=== PATIENT | female | born 1995 | race Caucasian/White ===

== ENCOUNTER 2017-12-17 15:34 | Outpatient (CLI) | payer OTHER ==
[~2017-12-17] VITALS: Ht 157.5 cm; Wt 72.7 kg
[2017-12-17] VITALS (16 sets, daily range): BP systolic 117–151; BP diastolic 65–95
[2017-12-17] MEDS ORDERED: PRENATAL TABLE1 EAC3 PO (16:04)
[2017-12-17 16:42] LABS: SOURCE SWAB
[2017-12-17 16:58] LABS: BASOPHIL (%) 0.2 % (0-1); EOSINOPHIL (%) 0.6 % (0-5); EOSINOPHIL COUNT 0.1 K/uL (0-0.3); HEMOGLOBIN 9.9 G/DL (11.9-15.5); IMMATURE GRANULOCYTE (%) 0.5 % (0.0-0.7); LYMPHOCYTE (%) 21.1 % (15-42); LYMPHOCYTE COUNT 2.2 K/uL (1.0-2.8); MCH 26.7 PG (29.0-34.0); MCHC 31.9 G/DL (30.0-36.0); MCV 83.6 FL (83-99); MONOCYTE (%) 7.2 % (3-12); MONOCYTE COUNT 0.8 K/uL (0-0.8); NEUTROPHIL (%) 70.4 % (45-76); NEUTROPHIL COUNT 7.4 K/uL (1.8-6.4); PLATELET COUNT 190 K/uL (156-360); RBC DIS.WIDTH-CV 13.4 % (11.8-14.6); RBC DIS.WIDTH-SD 40.3 % (39-53); RED BLOOD COUNT 3.71 M/uL (3.80-5.20); WHITE BLOOD COUNT 10.5 K/uL (4.1-10.2)
[2017-12-17 17:00] LABS: APPEARANCE SL.HAZY ((CLEAR)); BILIRUBIN NEGATIVE; BLOOD NEGATIVE; COLOR YELLOW ((YELLOW)); GLUCOSE (STRIP) NEGATIVE; KETONES 5; LEUKOCYTES MODERATE; NITRITE NEGATIVE; PROTEIN (STRIP) NEGATIVE; SPECIFIC GRAVITY 1.008 (1.000-1.030); UROBILINOGEN 0.2 MG/DL (0.2-1.0)
[2017-12-17 17:20] LABS: ALBUMIN 3.2 G/DL (3.2-4.8); ALKALINE PHOSPHATASE 230 IU/L (3-129); ALT (GPT) 12 IU/L (3-49); AST (GOT) 16 IU/L (2-34); CHLORIDE 106 MEQ/L (99-109); CREATININE 0.7 MG/DL (0.6-1.3); GFR ESTIMATE (CALCULATED) > 59 mL/min/; GLUCOSE 94 mg/dL (70-99); SODIUM 135 MEQ/L (136-147); TOTAL BILIRUBIN 0.4 MG/DL (0.0-1.0); TOTAL PROTEIN 6.2 G/DL (6.4-8.3); UREA NITROGEN (BUN) 8 mg/dL (9-23)
[2017-12-17 17:21] LABS: UR CREATININE CONCENTRATION 56.6 MG/DL
[2017-12-17 17:35] LABS: BACTERIA 3+ /HPF; EPITHELIAL CELLS 1+ /HPF; MUCUS NONE SEEN /LPF; RED BLOOD CELLS 0-5 /HPF (0-5); UCUL ADDED? YES
[2017-12-17 19:10] LABS: CANDIDA DNA PROBE NEGATIVE; GARDNERELLA DNA PROBE NEGATIVE; TRICHOMONAS DNA PROBE NEGATIVE
[2017-12-18] VITALS (10 sets, daily range): BP systolic 110–137; BP diastolic 58–76
== END 2017-12-18 17:57 | disposition home or self-care (01) ==
LOC: LDRP-OP 15:34 → 2WEST 15:35
PROVIDERS: Midwife; Obstetrics & Gynecology Obstetrics
DX: O47.03 False labor before 37 completed weeks of gestation, third trimester (principal); O26.893 Other specified pregnancy related conditions, third trimester; R03.0 Elevated blood-pressure reading, without diagnosis of hypertension; O99.89 Other specified diseases and conditions complicating pregnancy, childbirth and the puerperium; N89.8 Other specified noninflammatory disorders of vagina; O99.343 Other mental disorders complicating pregnancy, third trimester; F41.9 Anxiety disorder, unspecified; Z3A.35 35 weeks gestation of pregnancy; Z86.19 Personal history of other infectious and parasitic diseases
CPT/HCPCS: 59025; 80053; 81003; 82570; 82731; 84156; 85025; 87086; 87480; 87491; 87510; 87591; 87660; G0378; J0595; J0702; J7120

== ENCOUNTER 2017-12-21 16:23 | Inpatient (IN) | payer OTHER ==
[2017-12-18 14:05] VITALS: BP 132/73
[~2017-12-21] VITALS: Ht 157.5 cm; Wt 78.0 kg
[2017-12-21] VITALS (13 sets, daily range): BP systolic 131–190; BP diastolic 62–100
[~2017-12-21 16:23] MED LIST: PRENATAL TABLE1 EAC3 PO
[2017-12-21 17:06] LABS: BASOPHIL (%) 0.2 % (0-1); EOSINOPHIL (%) 0.3 % (0-5); HEMATOCRIT 28.6 % (36.0-46.0); HEMOGLOBIN 9.1 G/DL (11.9-15.5); IMMATURE GRANULOCYTE (%) 1.6 % (0.0-0.7); LYMPHOCYTE (%) 23.3 % (15-42); LYMPHOCYTE COUNT 2.7 K/uL (1.0-2.8); MCH 26.8 PG (29.0-34.0); MCHC 31.8 G/DL (30.0-36.0); MCV 84.1 FL (83-99); MONOCYTE (%) 9.4 % (3-12); MONOCYTE COUNT 1.1 K/uL (0-0.8); NEUTROPHIL (%) 65.2 % (45-76); NEUTROPHIL COUNT 7.5 K/uL (1.8-6.4); NRBC (%) 1.9 /100 WBC (0-0); PLATELET COUNT 193 K/uL (156-360); RBC DIS.WIDTH-CV 13.6 % (11.8-14.6); RBC DIS.WIDTH-SD 41.8 % (39-53); WHITE BLOOD COUNT 11.5 K/uL (4.1-10.2)
[2017-12-21 17:39] LABS: ALBUMIN 3.1 G/DL (3.2-4.8); ALKALINE PHOSPHATASE 231 IU/L (3-129); CHLORIDE 104 MEQ/L (99-109); CREATININE 0.7 MG/DL (0.6-1.3); GFR ESTIMATE (CALCULATED) > 59 mL/min/; GLUCOSE 94 mg/dL (70-99); POTASSIUM 3.9 MEQ/L (3.7-5.4); SODIUM 136 MEQ/L (136-147); TOTAL PROTEIN 5.7 G/DL (6.4-8.3); UREA NITROGEN (BUN) 11 mg/dL (9-23)
[2017-12-21 17:41] LABS: ALT (GPT) 48 IU/L (3-49); AST (GOT) 44 IU/L (2-34); TOTAL BILIRUBIN 0.5 MG/DL (0.0-1.0)
[2017-12-21 18:10] LABS: UR CREATININE CONCENTRATION 103.4 MG/DL
[2017-12-21 19:20] LABS: AMPHETAMINE NEGATIVE (500 ng/mL); BARBITURATES NEGATIVE (200 ng/mL); BENZODIAZEPINES NEGATIVE (150 ng/mL); BUPRENORPHINE NEGATIVE (10 ng/mL); COCAINE NEGATIVE (150 ng/mL); METHADONE NEGATIVE (200 ng/mL); METHAMPHETAMINE NEGATIVE (500 ng/mL); OPIATES (MORPHINE) NEGATIVE (100 ng/mL); OXYCODONE NEGATIVE (100 ng/mL); PHENCYCLIDINE NEGATIVE (25 ng/mL); PROPOXYPHENE NEGATIVE (300 ng/mL); THC CANNABINOIDS NEGATIVE (50 ng/mL); TRICYCLIC ANTIDEPRESSANTS NEGATIVE (300 ng/mL)
[2017-12-21 20:15] LABS: GROUP B STREP NEGATIVE (NEGATIVE)
[2017-12-22] VITALS (28 sets, daily range): BP systolic 132–196; BP diastolic 65–103
[2017-12-22 06:53] LABS: BASOPHIL (%) 0.1 % (0-1); EOSINOPHIL (%) 0 % (0-5); HEMATOCRIT 27.9 % (36.0-46.0); HEMOGLOBIN 8.9 G/DL (11.9-15.5); IMMATURE GRANULOCYTE (%) 2.1 % (0.0-0.7); LYMPHOCYTE (%) 10.9 % (15-42); MCH 26.5 PG (29.0-34.0); MCHC 31.9 G/DL (30.0-36.0); MONOCYTE (%) 2.8 % (3-12); MONOCYTE COUNT 0.3 K/uL (0-0.8); NEUTROPHIL (%) 84.1 % (45-76); NEUTROPHIL COUNT 7.8 K/uL (1.8-6.4); NRBC (%) 0.8 /100 WBC (0-0); PLATELET COUNT 180 K/uL (156-360); RBC DIS.WIDTH-CV 13.5 % (11.8-14.6); RBC DIS.WIDTH-SD 40.7 % (39-53); RED BLOOD COUNT 3.36 M/uL (3.80-5.20); WHITE BLOOD COUNT 9.3 K/uL (4.1-10.2)
[2017-12-22 07:26] LABS: ALKALINE PHOSPHATASE 209 IU/L (3-129); ALT (GPT) 72 IU/L (3-49); AST (GOT) 55 IU/L (2-34); CHLORIDE 106 MEQ/L (99-109); CREATININE 0.7 MG/DL (0.6-1.3); GFR ESTIMATE (CALCULATED) > 59 mL/min/; GLUCOSE 134 mg/dL (70-99); POTASSIUM 3.8 MEQ/L (3.7-5.4); SODIUM 135 MEQ/L (136-147); TOTAL BILIRUBIN 0.5 MG/DL (0.0-1.0); TOTAL PROTEIN 5.6 G/DL (6.4-8.3); UREA NITROGEN (BUN) 9 mg/dL (9-23)
[2017-12-23] VITALS (36 sets, daily range): BP systolic 127–171; BP diastolic 71–92
[2017-12-23 04:18] LABS: BASOPHIL (%) 0.1 % (0-1); EOSINOPHIL (%) 0 % (0-5); HEMATOCRIT 26.3 % (36.0-46.0); HEMOGLOBIN 8.5 G/DL (11.9-15.5); IMMATURE GRANULOCYTE (%) 1.6 % (0.0-0.7); LYMPHOCYTE (%) 13.2 % (15-42); LYMPHOCYTE COUNT 1.8 K/uL (1.0-2.8); MCH 26.6 PG (29.0-34.0); MCHC 32.3 G/DL (30.0-36.0); MCV 82.4 FL (83-99); MONOCYTE (%) 6.5 % (3-12); MONOCYTE COUNT 0.9 K/uL (0-0.8); NEUTROPHIL (%) 78.6 % (45-76); NEUTROPHIL COUNT 10.6 K/uL (1.8-6.4); NRBC (%) 0.3 /100 WBC (0-0); PLATELET COUNT 180 K/uL (156-360); RBC DIS.WIDTH-CV 13.9 % (11.8-14.6); RBC DIS.WIDTH-SD 41.2 % (39-53); RED BLOOD COUNT 3.19 M/uL (3.80-5.20); WHITE BLOOD COUNT 13.5 K/uL (4.1-10.2)
[2017-12-23 04:27] LABS: CHLORIDE 107 mEq/L (99-109); MAGNESIUM 4.8 mg/dL (1.3-2.7); POTASSIUM 3.9 mEq/L (3.7-5.4); SODIUM 135 mEq/L (136-147)
[2017-12-23 04:29] LABS: GLUCOSE 110 mg/dL (70-99); TOTAL PROTEIN 5.3 g/dL (6.4-8.3)
[2017-12-23 04:31] LABS: TOTAL BILIRUBIN 0.4 mg/dL (0.0-1.0)
[2017-12-23 04:32] LABS: ALKALINE PHOSPHATASE 255 IU/L (3-129)
[2017-12-23 04:33] LABS: CREATININE 0.7 mg/dL (0.6-1.3); GFR ESTIMATE (CALCULATED) > 59 mL/min/
[2017-12-23 04:34] LABS: AST (GOT) 38 IU/L (2-34); UREA NITROGEN (BUN) 9 mg/dL (9-23)
[2017-12-23 04:36] LABS: ALT (GPT) 65 IU/L (3-49)
[2017-12-24] VITALS (53 sets, daily range): BP systolic 136–212; BP diastolic 74–121
[2017-12-24] MEDS ORDERED: IBUPROFEN800 MG PO (04:15)
[2017-12-24 07:37] LABS: BASOPHIL (%) 0.1 % (0-1); EOSINOPHIL (%) 0 % (0-5); HEMATOCRIT 19.9 % (36.0-46.0); LYMPHOCYTE (%) 6.8 % (15-42); LYMPHOCYTE COUNT 1.6 K/uL (1.0-2.8); MCH 26.7 PG (29.0-34.0); MCHC 32.2 G/DL (30.0-36.0); MCV 82.9 FL (83-99); MONOCYTE (%) 8.8 % (3-12); MONOCYTE COUNT 2.1 K/uL (0-0.8); NEUTROPHIL (%) 82.3 % (45-76); NEUTROPHIL COUNT 19.5 K/uL (1.8-6.4); NRBC (%) 0.6 /100 WBC (0-0); PLATELET COUNT 211 K/uL (156-360); RBC DIS.WIDTH-CV 14.2 % (11.8-14.6); RBC DIS.WIDTH-SD 42.6 % (39-53); WHITE BLOOD COUNT 23.6 K/uL (4.1-10.2)
[2017-12-24 07:46] LABS: HEMOGLOBIN 6.4 G/DL (11.9-15.5)
[2017-12-24 11:32] LABS: BASOPHIL (%) 0.1 % (0-1); EOSINOPHIL (%) 0 % (0-5); HEMOGLOBIN 6.2 G/DL (11.9-15.5); IMMATURE GRANULOCYTE (%) 1.3 % (0.0-0.7); LYMPHOCYTE (%) 8.6 % (15-42); LYMPHOCYTE COUNT 2.1 K/uL (1.0-2.8); MCH 26.8 PG (29.0-34.0); MCHC 32.6 G/DL (30.0-36.0); MCV 82.3 FL (83-99); MONOCYTE (%) 6.5 % (3-12); MONOCYTE COUNT 1.6 K/uL (0-0.8); NEUTROPHIL (%) 83.5 % (45-76); NEUTROPHIL COUNT 20.1 K/uL (1.8-6.4); NRBC (%) 0.4 /100 WBC (0-0); PLATELET COUNT 174 K/uL (156-360); RBC DIS.WIDTH-CV 14.4 % (11.8-14.6); RBC DIS.WIDTH-SD 42.3 % (39-53); RED BLOOD COUNT 2.31 M/uL (3.80-5.20); WHITE BLOOD COUNT 24.1 K/uL (4.1-10.2)
[2017-12-24 11:50] LABS: ALBUMIN 2.1 G/DL (3.2-4.8); ALT (GPT) 30 IU/L (3-49); AST (GOT) 31 IU/L (2-34); CHLORIDE 107 MEQ/L (99-109); CREATININE 0.8 MG/DL (0.6-1.3); GFR ESTIMATE (CALCULATED) > 59 mL/min/; GLUCOSE 99 mg/dL (70-99); POTASSIUM 4.4 MEQ/L (3.7-5.4); SODIUM 136 MEQ/L (136-147); TOTAL BILIRUBIN 0.5 MG/DL (0.0-1.0); UREA NITROGEN (BUN) 10 mg/dL (9-23)
[2017-12-24 11:52] LABS: ALKALINE PHOSPHATASE 136 IU/L (3-129)
[2017-12-25 06:04] LABS: BASOPHIL (%) 0.1 % (0-1); EOSINOPHIL (%) 0.1 % (0-5); HEMATOCRIT 21.9 % (36.0-46.0); HEMOGLOBIN 7.2 G/DL (11.9-15.5); IMMATURE GRANULOCYTE (%) 1.2 % (0.0-0.7); LYMPHOCYTE (%) 15.4 % (15-42); LYMPHOCYTE COUNT 2.8 K/uL (1.0-2.8); MCH 27.3 PG (29.0-34.0); MCHC 32.9 G/DL (30.0-36.0); MONOCYTE (%) 6.9 % (3-12); MONOCYTE COUNT 1.3 K/uL (0-0.8); NEUTROPHIL (%) 76.3 % (45-76); NRBC (%) 0.3 /100 WBC (0-0); PLATELET COUNT 155 K/uL (156-360); RBC DIS.WIDTH-CV 14.8 % (11.8-14.6); RBC DIS.WIDTH-SD 44.4 % (39-53); RED BLOOD COUNT 2.64 M/uL (3.80-5.20); WHITE BLOOD COUNT 18.3 K/uL (4.1-10.2)
[2017-12-25 09:30] VITALS: BP 144/78
[2017-12-25 11:52] VITALS: BP 173/100
[2017-12-25 13:33] VITALS: BP 156/82
[2017-12-25 19:30] VITALS: BP 136/82
[2017-12-26 07:45] VITALS: BP 140/76
[2017-12-26] MEDS ORDERED: FERROUS SULFAT325 MG PO (11:08)
[2017-12-26] MEDS ORDERED: NIFEDIPINE ER30 MG PO (11:08)
[2017-12-26] MEDS ORDERED: LABETALOL HCL200 MG PO (11:08)
== END 2017-12-26 12:30 | disposition home or self-care (01) | DRG 774 ==
LOC: LDRP-OP 16:23 → 2WEST 16:25 → LDRP-OP 02-15 22:14
PROVIDERS: Midwife; Obstetrics & Gynecology Gynecology; Obstetrics & Gynecology Obstetrics
PROC: 3E0P7VZ Introduction of Hormone into Female Reproductive, Via Natural or Artificial Opening (ICD-10-PCS; principal; 2017-12-21)
PROC: 0U7C7ZZ Dilation of Cervix, Via Natural or Artificial Opening (ICD-10-PCS; 2017-12-22)
PROC: 10907ZC Drainage of Amniotic Fluid, Therapeutic from Products of Conception, Via Natural or Artificial Opening (ICD-10-PCS; 2017-12-23)
PROC: 3E0R3BZ Introduction of Anesthetic Agent into Spinal Canal, Percutaneous Approach (ICD-10-PCS; 2017-12-23)
PROC: 00HU33Z Insertion of Infusion Device into Spinal Canal, Percutaneous Approach (ICD-10-PCS; 2017-12-23)
PROC: 0KQM0ZZ Repair Perineum Muscle, Open Approach (ICD-10-PCS; 2017-12-24)
PROC: 0W8NXZZ Division of Female Perineum, External Approach (ICD-10-PCS; 2017-12-24)
PROC: 10E0XZZ Delivery of Products of Conception, External Approach (ICD-10-PCS; 2017-12-24)
DX: O70.1 Second degree perineal laceration during delivery (principal); O14.14 Severe pre-eclampsia complicating childbirth; O72.1 Other immediate postpartum hemorrhage; O41.1290 Chorioamnionitis, unspecified trimester, not applicable or unspecified; O86.12 Endometritis following delivery; D62 Acute posthemorrhagic anemia; O99.02 Anemia complicating childbirth; O99.89 Other specified diseases and conditions complicating pregnancy, childbirth and the puerperium; R19.7 Diarrhea, unspecified; O99.343 Other mental disorders complicating pregnancy, third trimester; F41.9 Anxiety disorder, unspecified; O99.713 Diseases of the skin and subcutaneous tissue complicating pregnancy, third trimester; L30.9 Dermatitis, unspecified; Z37.0 Single live birth
CPT/HCPCS: 80053; 82570; 83735; 84156; 85025; 85025 91; 85027; 86850; 86900; 86901; 86920; 87040; 87086; 87653; 88307; C1755; G0378; J0290; J0595; J0702; J1580; J2210; J2405; J3475; J7050; J7120; P9016